=== PATIENT | male | born 1960 | race Two or more races ===

== ENCOUNTER 2023-08-29 22:36 | Inpatient (IN) | payer MEDICARE ==
[~2023-08-29] VITALS: Ht 177.8 cm; Wt 74.8 kg
[2023-08-30] VITALS (14 sets, daily range): BP systolic 102–152; BP diastolic 62–88; TEMP 97.5–98.8; O2SAT 95–99
[2023-08-30] MEDS ORDERED: OMEP40CA21 PO (01:59)
[2023-08-30] MEDS ORDERED: AMLO-212 PO (01:59)
[2023-08-30] MEDS ORDERED: AMOX-427 PO (01:59)
[2023-08-30] MEDS ORDERED: AZIT250T PO (01:59)
[2023-08-30] MEDS ORDERED: ATOR10TA GT (01:59)
[2023-08-30] MEDS ORDERED: ALBU18HF2 IH (01:59)
[2023-08-30] MEDS ORDERED: OLME1TAB16 PO (01:59)
[2023-08-30] MEDS ORDERED: FLUT1DIS3 IH (01:59)
[2023-08-30] MEDS ORDERED: CYAN10006 IJ (01:59)
[2023-08-30] MEDS ORDERED: IPRATROPIUM NEB FS 0.5 MG/2.5 ML AMPUL.NEB NEB PRN (02:30)
[2023-08-30] MEDS ORDERED: ALBUTEROL FS 2.5 MG/3 ML VIAL.NEB NEB PRN (02:30)
[2023-08-30] MEDS ORDERED: ACETAMINOPHEN 325 MG TABLET PO PRN (02:30)
[2023-08-30] MEDS ORDERED: ALBUTEROL SULFATE 8 GM HFA.AER.AD IH PRN (02:30)
[2023-08-30] MEDS ORDERED: ZOLPIDEM TARTRATE 5 MG TABLET PO PRN (02:30)
[2023-08-30] MEDS ORDERED: ONDANSETRON HCL/PF 4 MG/2 ML VIAL IVP PRN (02:30)
[2023-08-30] MEDS ORDERED: MAGNESIUM HYDROXIDE 30 ML UDC PO PRN (02:30)
[2023-08-30] MEDS ORDERED: Z GUARD REMEDY 4 OZ OINT TP PRN (02:30)
[2023-08-30] MEDS ORDERED: MAG HYDROX/AL HYDROX/SIMETH 30 ML UDC PO PRN (02:30)
[2023-08-30 06:35] LABS: CALCIUM, SERUM 9.2 mg/dL (8.5-10.1); CREATININE 0.9 mg/dL (0.6-1.3); MAGNESIUM 2.4 mg/dL (1.8-2.4); POTASSIUM 3.3 mmol/L (3.5-5.1)
[2023-08-30 06:38] LABS: BASOPHILS % (AUTO) 0.1 % (0.0-2.0); HEMATOCRIT 35 % (39-51); HEMOGLOBIN 12.1 g/dL (13.5-17.5); LYMPHOCYTES # (AUTO) 0.5 K/uL (0.8-4.8); LYMPHOCYTES % (AUTO) 6.1 % (20.0-44.0); MEAN CORPUSCULAR HEMOGLOBIN 34 PG (26.0-33.0); MEAN CORPUSCULAR HGB CONC 35 g/dl (31.0-36.0); MEAN CORPUSCULAR VOLUME 99 fL (80-96); MONOCYTES # (AUTO) 0.6 K/uL (0.1-1.30); MONOCYTES % (AUTO) 6.6 % (2.0-12.0); NEUTROPHILS # (AUTO) 7.4 K/uL (1.8-8.9); NEUTROPHILS % (AUTO) 87.2 % (43.0-81.0); PLATELET COUNT (AUTO) 266 K/uL (150-450); RED BLOOD CELL COUNT(AUTO) 3.54 MIL/uL (4.5-6.0); RED CELL DISTRIBUTION WIDTH 12.8 % (11.5-15.0); WHITE BLOOD COUNT (AUTO) 8.5 K/uL (4.3-11.0)
[2023-08-30] MEDS ORDERED: POTASSIUM CHLORIDE 20 MEQ TAB.PRT.SR PO ONE (08:00)
[2023-08-30] MEDS: AMLODIPINE BESYLATE 5 MG TABLET PO SCH (08:18)
[2023-08-30] MEDS ORDERED: LORA2TAB95 PO (09:18)
[2023-08-30] MEDS ORDERED: GUAI600T53 PO (09:18)
[2023-08-30] MEDS ORDERED: ESOM40CA PO (09:18)
[2023-08-30] MEDS ORDERED: VENL150C2 PO (09:18)
[2023-08-30] MEDS ORDERED: IBUP-1957 PO (09:18)
[2023-08-30] MEDS ORDERED: AMIT50TA3 PO (09:18)
[2023-08-30] MEDS: LORAZEPAM 1 MG TABLET PO SCH ×2 (09:32→20:38)
[2023-08-30] MEDS ORDERED: methylPREDNISolone SOD SUCC 125 MG/2ML VIAL IV ONE (10:00)
[2023-08-30] MEDS: methylPREDNISolone SOD SUCC 40 MG/ML VIAL IV SCH (15:30)
[2023-08-30] MEDS: IPRATROPIUM NEB FS 0.5 MG/2.5 ML AMPUL.NEB NEB PRN (20:11)
[2023-08-30] MEDS: ALBUTEROL FS 2.5 MG/3 ML VIAL.NEB NEB PRN (20:11)
[2023-08-30] MEDS: ATORVASTATIN 10 MG TABLET PO SCH (22:18)
[2023-08-31] VITALS (13 sets, daily range): BP systolic 119–147; BP diastolic 74–86; TEMP 97.9–98.6; O2SAT 95–100
[2023-08-31] MEDS: methylPREDNISolone SOD SUCC 40 MG/ML VIAL IV SCH ×3 (00:01→15:51)
[2023-08-31] MEDS: ALBUTEROL FS 2.5 MG/3 ML VIAL.NEB NEB PRN ×4 (03:13→19:44)
[2023-08-31] MEDS: IPRATROPIUM NEB FS 0.5 MG/2.5 ML AMPUL.NEB NEB PRN ×4 (03:13→19:44)
[2023-08-31 05:57] LABS: HEMATOCRIT 37 % (39-51); HEMOGLOBIN 12.5 g/dL (13.5-17.5); LYMPHOCYTES # (AUTO) 0.4 K/uL (0.8-4.8); MEAN CORPUSCULAR HEMOGLOBIN 34 PG (26.0-33.0); MEAN CORPUSCULAR HGB CONC 34 g/dl (31.0-36.0); MEAN CORPUSCULAR VOLUME 99 fL (80-96); MONOCYTES # (AUTO) 0.7 K/uL (0.1-1.30); MONOCYTES % (AUTO) 7.1 % (2.0-12.0); NEUTROPHILS # (AUTO) 8.2 K/uL (1.8-8.9); NEUTROPHILS % (AUTO) 88.9 % (43.0-81.0); PLATELET COUNT (AUTO) 265 K/uL (150-450); RED BLOOD CELL COUNT(AUTO) 3.72 MIL/uL (4.5-6.0); RED CELL DISTRIBUTION WIDTH 12.5 % (11.5-15.0); WHITE BLOOD COUNT (AUTO) 9.3 K/uL (4.3-11.0)
[2023-08-31 06:11] LABS: CALCIUM, SERUM 9.7 mg/dL (8.5-10.1); CREATININE 0.9 mg/dL (0.6-1.3); MAGNESIUM 2.5 mg/dL (1.8-2.4); PHOSPHORUS 3.1 mg/dL (2.5-4.9); POTASSIUM 3.6 mmol/L (3.5-5.1)
[2023-08-31] MEDS: LORAZEPAM 1 MG TABLET PO SCH ×2 (08:38→21:28)
[2023-08-31] MEDS: AMLODIPINE BESYLATE 5 MG TABLET PO SCH (08:39)
[2023-08-31] MEDS: IBUPROFEN 200 MG TABLET PO PRN (16:13)
[2023-08-31] MEDS: MENTHOL/CETYLPYRD (CEPACOL) 1 LOZ LOZENGE PO PRN (18:50)
[2023-08-31] MEDS: ATORVASTATIN 10 MG TABLET PO SCH (21:28)
[2023-09-01] VITALS (11 sets, daily range): BP systolic 129–146; BP diastolic 61–77; TEMP 97.5–98.6; O2SAT 96–100
[2023-09-01] MEDS: methylPREDNISolone SOD SUCC 40 MG/ML VIAL IV SCH ×4 (00:33→23:29)
[2023-09-01] MEDS: IPRATROPIUM NEB FS 0.5 MG/2.5 ML AMPUL.NEB NEB PRN ×3 (07:53→22:08)
[2023-09-01] MEDS: ALBUTEROL FS 2.5 MG/3 ML VIAL.NEB NEB PRN ×2 (07:53→15:17)
[2023-09-01] MEDS: LORAZEPAM 1 MG TABLET PO SCH ×2 (08:58→21:36)
[2023-09-01] MEDS: AMLODIPINE BESYLATE 5 MG TABLET PO SCH (08:59)
[2023-09-01] MEDS: MENTHOL/CETYLPYRD (CEPACOL) 1 LOZ LOZENGE PO PRN ×3 (09:10→18:13)
[2023-09-01] MEDS: IBUPROFEN 200 MG TABLET PO PRN (15:15)
[2023-09-01] MEDS ORDERED: ALBUTEROL FS 2.5 MG/3 ML VIAL.NEB NEB SCH (19:30)
[2023-09-01] MEDS: ATORVASTATIN 10 MG TABLET PO SCH (21:35)
[2023-09-01] MEDS: ALBUTEROL FS 2.5 MG/3 ML VIAL.NEB NEB SCH (22:08)
[2023-09-02] VITALS (9 sets, daily range): BP systolic 134–159; BP diastolic 82–88; TEMP 97.7–98.4; O2SAT 94–100
[2023-09-02] MEDS: ALBUTEROL FS 2.5 MG/3 ML VIAL.NEB NEB SCH ×3 (01:30→14:37)
[2023-09-02] MEDS: MENTHOL/CETYLPYRD (CEPACOL) 1 LOZ LOZENGE PO PRN ×3 (03:40→12:58)
[2023-09-02 06:31] LABS: BASOPHILS % (AUTO) 0.2 % (0.0-2.0); HEMATOCRIT 38 % (39-51); HEMOGLOBIN 12.7 g/dL (13.5-17.5); LYMPHOCYTES # (AUTO) 0.4 K/uL (0.8-4.8); LYMPHOCYTES % (AUTO) 3.9 % (20.0-44.0); MEAN CORPUSCULAR HEMOGLOBIN 33 PG (26.0-33.0); MEAN CORPUSCULAR HGB CONC 33 g/dl (31.0-36.0); MEAN CORPUSCULAR VOLUME 101 fL (80-96); MONOCYTES # (AUTO) 0.7 K/uL (0.1-1.30); MONOCYTES % (AUTO) 6.1 % (2.0-12.0); NEUTROPHILS # (AUTO) 10.2 K/uL (1.8-8.9); NEUTROPHILS % (AUTO) 89.8 % (43.0-81.0); PLATELET COUNT (AUTO) 257 K/uL (150-450); RED BLOOD CELL COUNT(AUTO) 3.81 MIL/uL (4.5-6.0); RED CELL DISTRIBUTION WIDTH 12.8 % (11.5-15.0); WHITE BLOOD COUNT (AUTO) 11.3 K/uL (4.3-11.0)
[2023-09-02 06:55] LABS: CALCIUM, SERUM 9.3 mg/dL (8.5-10.1); CREATININE 0.7 mg/dL (0.6-1.3); MAGNESIUM 2.6 mg/dL (1.8-2.4); PHOSPHORUS 4.2 mg/dL (2.5-4.9); POTASSIUM 3.3 mmol/L (3.5-5.1)
[2023-09-02] MEDS: methylPREDNISolone SOD SUCC 40 MG/ML VIAL IV SCH (09:10)
[2023-09-02] MEDS: AMLODIPINE BESYLATE 5 MG TABLET PO SCH (09:10)
[2023-09-02] MEDS: LORAZEPAM 1 MG TABLET PO SCH (09:10)
[2023-09-02] MEDS ORDERED: POTASSIUM CHLORIDE 20 MEQ TAB.PRT.SR PO ONE (12:00)
[2023-09-02] MEDS ORDERED: PRED20TA PO (14:05)
[2023-09-02] MEDS ORDERED: FLUT1DIS3 INH (14:05)
[2023-09-02] MEDS ORDERED: ALBU8.5H8 INH (14:05)
[2023-09-02] MEDS ORDERED: AZIT1PAC9 PO (14:05)
== END 2023-09-02 15:30 | disposition home or self-care (01) | DRG 202 ==
LOC: TELE 08-30 00:41
PROVIDERS: ADMIT Nurse Practitioner Acute Care; ATTEND Nurse Practitioner Acute Care
DX: J20.8 Acute bronchitis due to other specified organisms (principal); E87.0 Hyperosmolality and hypernatremia; J44.0 Chronic obstructive pulmonary disease with (acute) lower respiratory infection; J44.1 Chronic obstructive pulmonary disease with (acute) exacerbation; E87.6 Hypokalemia; D53.9 Nutritional anemia, unspecified; E78.5 Hyperlipidemia, unspecified; F32.A Depression, unspecified; I10 Essential (primary) hypertension; K21.9 Gastro-esophageal reflux disease without esophagitis; Z86.73 Personal history of transient ischemic attack (TIA), and cerebral infarction without residual deficits; R73.9 Hyperglycemia, unspecified; T38.0X5A Adverse effect of glucocorticoids and synthetic analogues, initial encounter; Y92.230 Patient room in hospital as the place of occurrence of the external cause; Z87.891 Personal history of nicotine dependence; Z66 Do not resuscitate; C14.0 Malignant neoplasm of pharynx, unspecified
CPT/HCPCS: 36415; 80048-TC; 83735-TC; 84100-TC; 85025-TC; 94799-TC; G0378; J2920; J2930